=== PATIENT | female | born 1955 | race Two or more races ===

== ENCOUNTER 2020-08-28 17:14 | Emergency (ER) | payer MEDICARE, MEDICAID ==
[~2020-08-28] VITALS: Ht 149.9 cm; Wt 65.9 kg
[2020-08-28] MEDS ORDERED: ASPI-1450 PO (17:47)
[2020-08-28] MEDS ORDERED: METF-960 PO (17:47)
[2020-08-28] MEDS ORDERED: ATOR20TA86 PO (17:47)
[2020-08-28] MEDS ORDERED: GLIP10 PO (17:47)
[2020-08-28] MEDS ORDERED: SITA25 PO (17:47)
[2020-08-28] MEDS ORDERED: ENAL-90 PO (17:47)
[2020-08-28] MEDS ORDERED: SITA50 PO (17:50)
[2020-08-28] MEDS ORDERED: IBUPROFEN 600 MG TABLET PO ONE (19:30)
[2020-08-28 20:36] VITALS: BP 136/87
== END 2020-08-28 20:45 | disposition home or self-care (01) ==
LOC: EMS 17:16
DX: S20.212A Contusion of left front wall of thorax, initial encounter (principal); S50.02XA Contusion of left elbow, initial encounter; E11.9 Type 2 diabetes mellitus without complications; E78.00 Pure hypercholesterolemia, unspecified; I10 Essential (primary) hypertension; W01.0XXA Fall on same level from slipping, tripping and stumbling without subsequent striking against object, initial encounter; Y93.E9 Activity, other interior property and clothing maintenance; Y92.89 Other specified places as the place of occurrence of the external cause; Y99.8 Other external cause status
CPT/HCPCS: 71101; 82962; 99283

== ENCOUNTER 2020-09-18 07:53 | Emergency (ER) | payer MEDICARE, MEDICAID ==
[~2020-09-18] VITALS: Ht 157.5 cm; Wt 65.9 kg
[~2020-09-18 07:53] MED LIST: ASPI-1450 PO; ATOR20TA86 PO; ENAL-90 PO; GLIP10 PO; METF-960 PO; SITA50 PO
[2020-09-18 08:13] VITALS: BP 150/94
[2020-09-18] MEDS ORDERED: ASPI-989 PO (08:14)
[2020-09-18] MEDS ORDERED: IBUP-1506 PO (08:14)
[2020-09-18] MEDS ORDERED: LIDOCAINE 5% TRANSDERMAL PATCH TD ONE (08:15)
== END 2020-09-18 09:12 | disposition home or self-care (01) ==
LOC: EMS 07:53
DX: M54.5 Low back pain (principal); E11.9 Type 2 diabetes mellitus without complications; E78.00 Pure hypercholesterolemia, unspecified; I10 Essential (primary) hypertension; Z79.84 Long term (current) use of oral hypoglycemic drugs; Z79.82 Long term (current) use of aspirin
CPT/HCPCS: 99282; Z7502; Z7610